=== PATIENT | female | born 1975 | race Caucasian/White ===

== ENCOUNTER 2017-12-30 10:48 | Outpatient (CLI) | payer OTHER ==
--- NOTE | 2018-01-08 13:59 | Mammography Report ---
DIGITAL SCREENING MAMMOGRAM: 12/30/2017 CLINICAL INDICATION: A 42-year-old with history of late childbearing, history of benign biopsy for screening. COMPARISON: 11/10/2016, 11/05/2016, 05/02/2014, 02/05/2012, 09/10/2009 from [place], [place]. TECHNIQUE: Routine CC and MLO projections were obtained of the breasts. FINDINGS: The breasts demonstrate heterogeneously dense fibroglandular parenchyma bilaterally. Biopsy markers are present in the right breast. Coarse and punctate, typically benign calcifications are present. No suspicious masses, clustered microcalcifications, or regions of architectural distortion are identified. IMPRESSION: BENIGN FINDINGS. RECOMMENDATION: Routine annual screening unless otherwise clinically indicated. BIRADS CATEGORY 2 - benign findings. STANDARD QUALIFYING STATEMENTS: 1. This examination was reviewed with the aid of Computer-Aided Detection (CAD). 2. A negative or benign imaging report should not delay biopsy if clinically suspicious findings are present. Consider surgical consultation if warranted. More than 5% of cancers are not identified by imaging. 3. Dense breasts may obscure an underlying neoplasm. TD: 01/08/2018 13:58
== END 2017-12-30 10:49 | disposition home or self-care (01) ==
LOC: DI.S 10:48
PROVIDERS: ATTEND Physician Assistant
DX: Z12.31 Encounter for screening mammogram for malignant neoplasm of breast (principal)
CPT/HCPCS: 77067

== ENCOUNTER 2019-01-03 09:33 | Outpatient (CLI) | payer OTHER ==
--- NOTE | 2019-01-04 08:23 | Mammography Report ---
Reason: ENCOUNTER FOR SCREENING MAMMOGRAM FOR MALIGNANT NE Procedure Date: 01/03/2019 Accession Number: [id number] / [id number] Procedure: [facility] - Screening Mammo w/Ramirez CPT Code: FULL RESULT: EXAM: Screening Mammo w/Ramirez DATE: 01/03/2019 9:57 AM CLINICAL HISTORY: Screening encounter. History of late childbearing. Family history of breast cancer in a grandmother at the age of 55. History of 3 benign right breast needle biopsies. TECHNIQUE: Bilateral CC and MLO views were obtained. COMPARISON: 12/30/2017 through 09/10/2009. FINDINGS: The breasts demonstrate extremely dense parenchyma bilaterally, limiting the sensitivity of mammography. Biopsy markers in the right breast are stable. Defined on 3-D images, 2 spherical masses in the lower medial left breast on MLO image 41 and 30 are isodense and well-circumscribed with subtle rim calcification; these are retrospectively identified as partially obscured masses on 2-D images dating back to 2011 and therefore typically benign. No suspicious masses, clustered microcalcifications, or regions of architectural distortion are identified. IMPRESSION: Benign findings RECOMMENDATION: Routine annual screening unless otherwise clinically indicated. BIRADS CATEGORY 2: Benign findings STANDARD QUALIFYING STATEMENTS: 1. This examination was not reviewed with the aid of Computer-Aided Detection (CAD). 2. A negative or benign imaging report should not delay biopsy if clinically suspicious findings are present. Consider surgical consultation if warrented. More than 5% of cancers are not identified by imaging. 3. Dense breasts may obscure an underlying neoplasm. 4. This examination was reviewed with the aid of 3D breast imaging (tomosynthesis).
== END 2019-01-03 09:34 | disposition home or self-care (01) ==
LOC: DI 09:33
PROVIDERS: ATTEND Physician Assistant
DX: Z12.31 Encounter for screening mammogram for malignant neoplasm of breast (principal); Z80.3 Family history of malignant neoplasm of breast
CPT/HCPCS: 77063; 77067

== ENCOUNTER 2020-08-05 09:50 | Outpatient (CLI) | payer OTHER ==
--- NOTE | 2020-08-06 14:47 | Mammography Report ---
BILATERAL DIGITAL SCREENING MAMMOGRAM 3D/2D: 08/05/2020 CLINICAL: Routine screening. Comparison is made to exams dated: 11/10/2016 mammogram, 01/03/2019 mammogram, 12/30/2017 mammogram, and 02/05/2012 mammogram - [facility]. The tissue of both breasts is heterogeneously den se. This may lower the sensitivity of mammography. There is a biopsy clip in the right breast. No significant masses, calcifications, or other findings are seen in either breast. There has been no significant interval change. IMPRESSION: NEGATIVE There is no mammographic evidence of malignancy. A 1 year screening mammogram is recommended. This exam was interpreted at Station ID: [id number]. NOTE: For mammograms, a report in lay terms will be sent to the patient. Approximately 15% of breast malignancies will not be visualized mammographically. In the management of a palpable breast mass, a negative mammogram must not discourage biopsy of a clinically suspicious lesion. Electronically Signed By: Rocky rubio/lorne:08/06/2020 13:11:53 ACR BI-RADS Category 1: Negative 3341F PARENCHYMAL PATTERN: (D) - The breast(s) demonstrate(s) heterogeneously dense fibroglandular pardelisa edmonds. BI-RADS CATEGORY: (1) - 1 RECOMMENDATION: (ANNUAL) - Recommend routine annual screening mammography. [id number] 1 year screening LATERALITY: (B)
== END 2020-08-05 09:51 | disposition home or self-care (01) ==
LOC: DI 09:50
PROVIDERS: ATTEND Nurse Practitioner Family
DX: Z12.31 Encounter for screening mammogram for malignant neoplasm of breast (principal)
CPT/HCPCS: 77063; 77067

== ENCOUNTER 2023-08-25 15:06 | Outpatient (CLI) | payer BC ==
--- NOTE | 2023-08-25 20:05 | Ultrasound Report ---
PROCEDURE: Pelvic w/Transvaginal INDICATIONS: ANEMIA, MENORRHAGIA TECHNIQUE: Real-time scanning was performed of the pelvic organs, with image documentation. Additional endovagi nal scanning was necessary due to incomplete visualization of the adnexal and endometrial structures by transabdominal scanning. COMPARISON: None. FINDINGS: Uterus: Uterus is anteverted and normal in size at 10.1 x 7.5 x 8.8 cm. The myometrium is heterogen eous. 4 x 4.1 x 3.7 cm submucosal fibroid anterior myometrium is seen. 3.8 x 4.5 x 2.9 cm submucosal fibroid anterior myometrium is also noted. There is also a 3.4 x 3.2 x 3.9 cm submucosal fibroid in anterior myometrium. The endometrium measures 7.1 mm in combined thickness. No endometrial mass or f luid. Ovaries: The right ovary measures 2.8 x 1.9 x 1.2 cm, with a calculated ovarian volume of 3.6 cc. T he left ovary measures 3.3 x 1.7 x 1.6 cm, with a calculated ovarian volume of 5.1 cc. The ovaries h ave a normal sonographic appearance. Less than 12 follicles can be seen in each ovary. No adnexal m asses are seen. No cystic lesions measuring greater than 3 cm. Other: No pathologic free abdominal or pelvic fluid. IMPRESSION: 1. Multiple submucosal fibroids as above. Smaller subserosal fibroids also seen throughout enlarged u terus with heterogeneous myometrial echotexture. No gross endometrial mass or fluid. 2. Normal-appearing bilateral ovaries. Reviewed by: Rajiv Roach MD on 08/25/2023 8:04 PM PDT Approved by: Rajiv Roach MD on 08/25/2023 8:04 PM PDT Station ID: [id number]
== END 2023-08-25 15:07 | disposition home or self-care (01) ==
LOC: DI 15:06
PROVIDERS: ATTEND Internal Medicine
DX: D64.9 Anemia, unspecified (principal); N92.0 Excessive and frequent menstruation with regular cycle; D25.0 Submucous leiomyoma of uterus; D25.2 Subserosal leiomyoma of uterus

== ENCOUNTER 2024-03-17 09:43 | Outpatient (CLI) | payer BC ==
[2024-03-17 15:23] LABS: BASOPHILS # (AUTO) 0.1 10^3/uL (0.0-0.1); EOSINOPHILS # (AUTO) 0.3 10^3/uL (0.0-0.7); EOSINOPHILS % (AUTO) 6.4 %; HCT - HEMATOCRIT 34.8 % (37.0-47.0); HGB - HEMOGLOBIN 10.6 g/dL (12.0-16.0); LYMPHOCYTES # (AUTO) 1.5 10^3/uL (1.5-3.5); LYMPHOCYTES % (AUTO) 29.7 %; MEAN CORPUSCULAR HEMOGLOBIN 27.6 pg (27.0-31.0); MEAN CORPUSCULAR HGB CONC 30.5 g/dL (32.0-36.0); MEAN CORPUSCULAR VOLUME 90.6 fL (81.0-99.0); MEAN PLATELET VOLUME 10.4 fL (7.9-10.8); MONOCYTES # (AUTO) 0.6 10^3/uL (0.0-1.0); NEUTROPHILS # (AUTO) 2.6 10^3/uL (1.5-6.6); NEUTROPHILS % (AUTO) 51.9 %; PLT - PLATELET COUNT 338 10^3/uL (130-450); RED BLOOD COUNT 3.84 10^6/uL (4.20-5.40); RED CELL DISTRIBUTION WIDTH 17.6 % (12.0-15.0)
[2024-03-17 15:34] LABS: % IRON SATURATION 6 % (20-50); ALBUMIN/GLOBULIN RATIO 1.4 (1.0-2.2); ALKALINE PHOSPHATASE 49 IU/L (42-121); ALT ALANINE AMINOTRANSFERASE 12 IU/L (10-60); AST ASPARTATE AMINOTRANSFERASE 18 IU/L (10-42); BILIRUBIN,TOTAL 0.3 mg/dL (0.2-1.0); BUN - BLOOD UREA NITROGEN 11 mg/dL (6-20); CALCIUM 9.3 mg/dL (8.5-10.3); CARBON DIOXIDE - CO2 25 mmol/L (21-32); CHLORIDE 105 mmol/L (101-111); CHOLESTEROL 240 mg/dL; CREATININE 0.7 mg/dL (0.6-1.3); GFR - MDRD 89 (>89); GLUCOSE 84 mg/dL (74-104); HDL CHOLESTEROL 80 mg/dL; IRON 26 ug/dL (50-212); LDL CHOLESTEROL,CALCULATED 144 mg/dL; LDL/HDL RATIO 1.8 (<4.4); POTASSIUM 4.3 mmol/L (3.5-4.5); SODIUM 136 mmol/L (135-145); TOTAL IRON BINDING CAPACITY 458 ug/dL (250-450); TOTAL PROTEIN 6.8 g/dL (6.4-8.9); TRANSFERRIN 327 mg/dL (203-362); TRIGLYCERIDES 80 mg/dL (48-352); VLDL CHOLESTEROL 16 mg/dL
[2024-03-17 15:48] LABS: THYROID STIMULATING HORMONE 1.33 uIU/mL (0.34-5.60)
[2024-03-17 15:56] LABS: FERRITIN 4.6 ng/mL (11.0-306.8)
[2024-03-17 20:49] LABS: ESTIMATED AVERAGE GLUCOSE 108 mg/dL (70-100); HEMOGLOBIN A1c% 5.4 % (4.27-6.07)
== END 2024-03-17 09:44 | disposition home or self-care (01) ==
LOC: LAB.S 09:43
PROVIDERS: ATTEND Internal Medicine
DX: D64.9 Anemia, unspecified (principal); R63.5 Abnormal weight gain; Z13.220 Encounter for screening for lipoid disorders; N92.0 Excessive and frequent menstruation with regular cycle
CPT/HCPCS: 36415; 80053; 80061; 82607; 82728; 82746; 83036; 83540; 83721; 84443; 84466; 85025